=== PATIENT | male | born 1975 | race Caucasian/White ===

== ENCOUNTER 2016-10-08 12:04 | Emergency (ER) | payer OTHER ==
[~2016-10-08] VITALS: Ht 175.3 cm; Wt 70.3 kg
[2016-10-08 12:52] LABS: BASOPHIL COUNT 0.1 K/uL (0-0.1); EOSINOPHIL (%) 1.8 % (0-5); EOSINOPHIL COUNT 0.1 K/uL (0-0.3); HEMATOCRIT 42.7 % (38.0-50.0); IMMATURE GRANULOCYTE (%) 0.3 % (0.0-0.7); INSTRUMENT ABS NEUTROPHIL CT 5.4 K/uL; LYMPHOCYTE COUNT 1.1 K/uL (1.0-2.8); MCH 30.1 PG (29.0-34.0); MCV 88.6 FL (86-99); MEAN PLAT.VOLUME 10.5 uM^3 (9.0-12.4); MONOCYTE (%) 6.8 % (3-12); MONOCYTE COUNT 0.5 K/uL (0-0.8); NEUTROPHIL (%) 74.5 % (45-76); NEUTROPHIL COUNT 5.4 K/uL (1.8-6.4); PLATELET COUNT 212 K/uL (156-360); RBC DIS.WIDTH-CV 12.8 % (11.8-14.6); RBC DIS.WIDTH-SD 41.7 % (39-53); RED BLOOD COUNT 4.82 M/uL (4.00-5.50); WHITE BLOOD COUNT 7.2 K/uL (4.1-10.2)
[2016-10-08 12:58] LABS: PROTHROMBIN TIME 11.5 SEC (10.2-12.9)
[2016-10-08 13:01] LABS: CHLORIDE 108 mEq/L (99-109); POTASSIUM 3.8 mEq/L (3.7-5.4); PTT 32.7 SEC (25-37); SODIUM 142 mEq/L (136-147)
[2016-10-08 13:03] LABS: GLUCOSE 97 mg/dL (70-99)
[2016-10-08 13:04] LABS: ANION GAP 10 MEQ/L (2-14)
[2016-10-08 13:05] LABS: TOTAL BILIRUBIN 0.5 mg/dL (0.0-1.0)
[2016-10-08 13:07] LABS: ALKALINE PHOSPHATASE 57 IU/L (3-129); GFR ESTIMATE (CALCULATED) > 59 mL/min/
[2016-10-08 13:08] LABS: UREA NITROGEN (BUN) 15 mg/dL (9-23)
[2016-10-08 13:10] LABS: CREATINE KINASE 203 IU/L (1-294); TOTAL CK 203 IU/L (1-294)
[2016-10-08 13:18] LABS: CK-MB 1.6 ng/mL (0.0-4.9)
[2016-10-08 15:23] VITALS: BP 130/81
== END 2016-10-08 15:25 | disposition home or self-care (01) ==
LOC: EME 12:04
PROVIDERS: Emergency Medicine
DX: S30.860A Insect bite (nonvenomous) of lower back and pelvis, initial encounter (principal); W57.XXXA Bitten or stung by nonvenomous insect and other nonvenomous arthropods, initial encounter; R51 Headache; R06.02 Shortness of breath; R53.83 Other fatigue; R11.0 Nausea; F17.200 Nicotine dependence, unspecified, uncomplicated
CPT/HCPCS: 80053; 82550; 82553; 85025; 85610; 85730; 99281; 99285; J1100; J1200; J7030; S0028